=== PATIENT | male | born 1965 | race Caucasian/White ===

== ENCOUNTER 2024-12-09 06:26 | Day surgery (SDC) | payer OTHER, SELFPAY | END 2024-12-09 15:42 | disposition home or self-care (01) | LOC: GI 06:26 | PROVIDERS: ATTENDING PHYSICIAN Internal Medicine | DX: Z12.11 Encounter for screening for malignant neoplasm of colon (principal); K55.20 Angiodysplasia of colon without hemorrhage; K64.8 Other hemorrhoids; K63.5 Polyp of colon | CPT/HCPCS: 45380; 88305 ==

== ENCOUNTER → 2025-08-03 08:38 | Outpatient (REF) | payer SELFPAY | LOC: HWRAD 08:38 | PROVIDERS: ATTENDING PHYSICIAN Internal Medicine | DX: E78.2 Mixed hyperlipidemia (principal) | CPT/HCPCS: 75571 ==